=== PATIENT | female | born 1930 | race Caucasian/White ===

== ENCOUNTER → 2017-05-08 | Outpatient (CLI) | payer MEDICARE ==
[~2017-05-08] MED LIST: GABAPENTIN PO; JANUVIA100 MG PO; MICARDIS 20MG T20 M1 PO; TOPROL XL25 MG PO; VITAMIN D 5050000 I1
== END ==
LOC: CAT 08:27 → EDSTATUS 09:19 → CAT 09:22
DX: M47.894 Other spondylosis, thoracic region (principal); M47.892 Other spondylosis, cervical region; C64.9 Malignant neoplasm of unspecified kidney, except renal pelvis; W19.XXXA Unspecified fall, initial encounter; Y92.099 Unspecified place in other non-institutional residence as the place of occurrence of the external cause; Y93.89 Activity, other specified; Y99.8 Other external cause status